=== PATIENT | female | born 1955 | race Caucasian/White ===

== ENCOUNTER → 2018-01-26 | Outpatient (CLI) | payer MEDICARE, OTHER ==
--- NOTE | 2018-01-26 16:18 | CT ---
EXAMINATION TYPE: CT abdomen pelvis w con DATE OF EXAM: 01/26/2018 COMPARISON: NONE HISTORY: Patient complains of generalized pelvic pain. CT DLP: 549.9 mGycm Automated exposure control for dose reduction was used. TECHNIQUE: Helical acquisition of images from the lung bases through the pelvis have been completed. CONTRAST: Performed with Oral Contrast and with IV Contrast, patient injected with 100 mL of Omnipaque 300. FINDINGS: There is a fixed hiatal hernia present. LUNG BASES: No significant abnormality is appreciated. AORTA: No significant abnormality is appreciated. LIVER/GB: Gallbladder is absent. No evident liver mass. PANCREAS: No significant abnormality is seen. SPLEEN: No significant abnormality is seen. ADRENALS: No significant abnormality is seen. KIDNEYS: No significant abnormality is seen. The left common iliac vein shows a stent extending to the level of the common femoral vein which appe ars patent. REPRODUCTIVE ORGANS: No significant abnormality is seen BOWEL: No significant abnormality is seen. There is no obstruction in the appendix is normal. FREE AIR: No Free Air visible. ASCITES: None visible. PELVIC ADENOPATHY: None visualized. RETROPERITONEAL ADENOPATHY: No Retroperitoneal Adenopathy visible. URINARY BLADDER: No significant abnormality is seen. OSSEOUS STRUCTURES: No significant abnormality is seen. IMPRESSION: POSTOP CHANGES.
== END | disposition home or self-care (01) ==
LOC: RADCTMAIN 13:39
PROVIDERS: ATTEND Internal Medicine Hematology & Oncology
DX: R10.84 Generalized abdominal pain (principal); Z98.890 Other specified postprocedural states
CPT/HCPCS: 74177; Q9967

== ENCOUNTER → 2018-03-30 | Outpatient (CLI) | payer MEDICARE, OTHER ==
--- NOTE | 2018-03-30 15:42 | US ---
EXAMINATION TYPE: US venous doppler duplex LE BI DATE OF EXAM: 03/30/2018 2:34 PM COMPARISON: NONE CLINICAL HISTORY: 62-year-old female R22.41 R22.42 Swelling Bilateral. Left leg swelling. No redness . Hx of left leg X 2-- last one was in Dec 2017. On blood thinners. SIDE PERFORMED: Bilateral TECHNIQUE: The lower extremity deep venous system is examined utilizing real time linear array sonog marylou with graded compression, doppler sonography and color-flow sonography. FINDINGS: VESSELS IMAGED: External Iliac Vein (EIV) Common Femoral Vein Deep Femoral Vein Greater Saphenous Vein * Femoral Vein Popliteal Vein Small Saphenous Vein * Proximal Calf Veins (* superficial vessels) Right Leg: Negative for DVT Left Leg: Negative for DVT IMPRESSION: No evidence for DVT within the bilateral lower extremities imaged from the groin to the upper calves.
== END | disposition home or self-care (01) ==
LOC: RADUSWWP 14:32
PROVIDERS: ATTEND Internal Medicine Hematology & Oncology
DX: R22.43 Localized swelling, mass and lump, lower limb, bilateral (principal)
CPT/HCPCS: 93970

== ENCOUNTER → 2018-04-23 | Outpatient (CLI) | payer MEDICARE, OTHER ==
--- NOTE | 2018-04-25 20:45 | BD ---
EXAMINATION TYPE: Axial Bone Density DATE OF EXAM: 04/23/2018 COMPARISON: NONE CLINICAL HISTORY: Height: 5 FT 4 /4 IN Weight: 161 FRAX RISK QUESTIONS: History of Fracture in Adulthood: YES Secondary Osteoporosis: 3. Menopause before 45: YES RISK FACTORS HISTORY OF: History of Wrist Fracture: LT WRIST When: 5 YEARS AGO Postmenopausal woman: AGE 44 HISTORY OF THORACIC SPINE FX SURG 10 YEARS AGO MEDICATIONS: Additional Medications: XERALTO, EFFEXOR, DIZAPAM, BABY ASPIRIN, DEXILANT , STATIN Additional History: RECENT BLOOD CLOT WITH FILTER YOU CAN SEE ON SPINE IMAGE EXAM MEASUREMENTS: Bone mineral densitometry was performed using the [employer]. Bone mineral density as measured about the Lumbar spine is: ----- L1-L4(G/cm2): 0.940 T Score Values are as follows: ----- L2: -2.6 ----- L3: -1.5 ----- L4: -1.0 ----- L1-L4: -2.0 BASELINE Bone mineral density about the R hip (g/cm2): 0.760 Bone mineral density about the L hip (g/cm2): 0.770 T Score values are as follows: -----R Neck: -2.0 -----L Neck: -1.9 -----R Total: -2.1 -----L Total: -1.7 BASELINE IMPRESSION: Osteopenia (T Score between -2.5 and -1) overall in low back and both hips.. There is slightly increased risk of fracture and the patient may be considered for treatment. Re-Screen 2-5 years. NOTE: T-SCORE=SD OF THE YOUNG ADULT MEAN.
== END | disposition home or self-care (01) ==
LOC: RADBDWWP 13:07
PROVIDERS: ATTEND Internal Medicine Hematology & Oncology
DX: M81.0 Age-related osteoporosis without current pathological fracture (principal)
CPT/HCPCS: 77080

== ENCOUNTER → 2019-03-21 | Outpatient (CLI) | payer MEDICARE, OTHER ==
--- NOTE | 2019-03-21 14:23 | US ---
EXAMINATION TYPE: US venous doppler duplex LE LT DATE OF EXAM: 03/21/2019 2:10 PM COMPARISON: 03/30/2018 CLINICAL HISTORY: Swelling L leg R22.42,Pain L leg M79.662. Left leg pain. Hx of DVT in left leg x 2 . On blood thinners. No redness. SIDE PERFORMED: Left TECHNIQUE: The lower extremity deep venous system is examined utilizing real time linear array sonog marylou with graded compression, doppler sonography and color-flow sonography. VESSELS IMAGED: External Iliac Vein (EIV) Common Femoral Vein Deep Femoral Vein Greater Saphenous Vein * Femoral Vein Popliteal Vein Small Saphenous Vein * Proximal Calf Veins (* superficial vessels) Grayscale, color doppler, spectral doppler imaging performed of the deep veins of the left lower extr emity. There is normal flow, compressibility, vascular waveforms. Left Leg: Negative for DVT. Rouleaux flow visualized. IMPRESSION: No sonographic evidence of deep venous arthrosis within the left lower extremity. Roulea ux flow visualized that can be seen in congestive heart failure or venous valvular incompetence.
== END ==
LOC: RADUSWWP 13:48
PROVIDERS: ATTEND Internal Medicine Hematology & Oncology
DX: M79.662 Pain in left lower leg (principal); R22.42 Localized swelling, mass and lump, left lower limb

== ENCOUNTER → 2022-01-03 | Outpatient (CLI) | payer MEDICARE, OTHER ==
--- NOTE | 2022-01-03 15:39 | CT ---
EXAMINATION TYPE: CT urogram wo/w con DATE OF EXAM: 01/03/2022 COMPARISON: 01/26/2018 HISTORY: hematuria CT DLP: 1170.2 mGycm CONTRAST: Performed and without and with IV Contrast, patient injected with 80cc mL of Isovue 300. CT Urography was performed with unenhanced followed by enhanced images of the kidneys, ureters and ur inary bladder. Delayed images were obtained. 3d reconstruction was performed at a separate work sta tion. FINDINGS: KIDNEYS/BLADDER: No hydronephrosis. 5 mm calculus mid pole right kidney. No distinct renal mass. Uri nary bladder grossly unremarkable. LUNG BASES-: No visible nodule. No infiltrate. LIVER/GB: No calcified gallstones. No space occupying hepatic lesion. Biliary tree is of normal ca liber. PANCREAS: No inflammation. No distinct mass. SPLEEN: No splenic enlargement. No lesion seen. ADRENALS: No nodule. No thickening. BOWEL: Normal appendix. Normal bowel caliber. No inflammation. Small sliding-type hiatal hernia not ed. GENITAL ORGANS: Left ovarian cyst measuring 2.7 cm. LYMPH NODES: No greater than 1cm abdominal or pelvic lymph nodes are appreciated. AORTA: No significant abnormality. Left common iliac stent. OSSEOUS STRUCTURES: No significant abnormality is seen. OTHER: No significant additional abnormality is seen. IMPRESSION: 1. Nonobstructing right sided nephrolithiasis.
== END | disposition home or self-care (01) ==
LOC: RADCTMAIN 13:50
PROVIDERS: ATTEND Urology
DX: N20.0 Calculus of kidney (principal)
CPT/HCPCS: 82565; 84520; 74178; 36415; 74400; Q9967